=== PATIENT | female | born 1980 | race Caucasian/White ===

== ENCOUNTER 2020-09-10 01:04 | Emergency (ER) | payer OTHER ==
[2020-09-10] MEDS ORDERED: LODINE CAP 300300 MG PO (04:20)
[2020-09-10] MEDS ORDERED: CLINDAMYCIN HC150 MG PO (04:20)
== END 2020-09-10 04:00 | disposition home or self-care (01) ==
LOC: ER1 01:04
DX: L03.113 Cellulitis of right upper limb (principal); F17.210 Nicotine dependence, cigarettes, uncomplicated
CPT/HCPCS: 73110; 73130; 99283

== ENCOUNTER 2020-11-17 04:25 | Emergency (ER) | payer OTHER ==
[~2020-11-17 04:25] MED LIST: CLINDAMYCIN HC150 MG PO; LODINE CAP 300300 MG PO
[2020-11-17] MEDS ORDERED: HYDROCODON-ACE1 EAC4 PO (05:09)
== END 2020-11-17 05:35 | disposition home or self-care (01) ==
LOC: ER1 04:25
DX: S62.336A Displaced fracture of neck of fifth metacarpal bone, right hand, initial encounter for closed fracture (principal); F17.290 Nicotine dependence, other tobacco product, uncomplicated; W20.8XXA Other cause of strike by thrown, projected or falling object, initial encounter
CPT/HCPCS: 29125; 73130; 99283

== ENCOUNTER 2020-12-18 06:44 | Emergency (ER) | payer OTHER ==
[~2020-12-18 06:44] MED LIST changes: +HYDROCODON-ACE1 EAC4 PO
[2020-12-18] MEDS ORDERED: VALACYCLOVIR1000 MG PO (07:10)
== END 2020-12-18 07:45 | disposition home or self-care (01) ==
LOC: ER1 06:44
DX: B02.9 Zoster without complications (principal); F17.210 Nicotine dependence, cigarettes, uncomplicated
CPT/HCPCS: 99282

== ENCOUNTER 2021-02-25 00:57 | Emergency (ER) | payer OTHER ==
[~2021-02-25 00:57] MED LIST changes: +VALACYCLOVIR1000 MG PO
[2021-02-25] MEDS ORDERED: HYDROCODON-ACE1 EAC4 PO (21:23)
[2021-02-25] MEDS ORDERED: NAPROSYN500 MG PO (21:27)
[2021-02-25] MEDS ORDERED: ONDANSETRON ODT4 MG SL (21:27)
== END 2021-02-25 02:48 | disposition left against medical advice (07) ==
LOC: ER1 00:57
DX: M25.572 Pain in left ankle and joints of left foot (principal)
CPT/HCPCS: 73610; 99281

== ENCOUNTER 2021-02-25 20:08 | Emergency (ER) | payer OTHER ==
[2021-02-25] MEDS ORDERED: HYDROCODON-ACE1 EAC4 PO (21:23)
[2021-02-25] MEDS ORDERED: ONDANSETRON ODT4 MG SL (21:27)
[2021-02-25] MEDS ORDERED: NAPROSYN500 MG PO (21:27)
== END 2021-02-25 21:56 | disposition home or self-care (01) ==
LOC: ER1 20:08
DX: S82.62XA Displaced fracture of lateral malleolus of left fibula, initial encounter for closed fracture (principal); F17.210 Nicotine dependence, cigarettes, uncomplicated; X50.9XXA Other and unspecified overexertion or strenuous movements or postures, initial encounter; Y92.009 Unspecified place in unspecified non-institutional (private) residence as the place of occurrence of the external cause
CPT/HCPCS: 73590; 99283

== ENCOUNTER → 2021-03-02 | Emergency (ER) | payer OTHER ==
[~2021-03-02] MED LIST changes: +NAPROSYN500 MG PO; +ONDANSETRON ODT4 MG SL
== END | disposition home or self-care (01) ==
LOC: ER1 16:35
DX: S82.62XA Displaced fracture of lateral malleolus of left fibula, initial encounter for closed fracture (principal); F17.200 Nicotine dependence, unspecified, uncomplicated; X58.XXXA Exposure to other specified factors, initial encounter
CPT/HCPCS: 73610; 99283

== ENCOUNTER → 2021-03-07 | Outpatient (CLI) | payer OTHER | LOC: KOH-I 11:00 | DX: S82.62XD Displaced fracture of lateral malleolus of left fibula, subsequent encounter for closed fracture with routine healing (principal); X58.XXXD Exposure to other specified factors, subsequent encounter | CPT/HCPCS: 73610 ==

== ENCOUNTER → 2021-03-10 | Day surgery (SDC) | payer OTHER ==
[2021-03-10 10:38] LABS: HEMOGLOBIN 12.9 gm/dl (12.3-15.3); RED BLOOD COUNT 4.15 M/UL (4.00-5.10); WHITE BLOOD COUNT 7.6 K/UL (4.5-11.0)
[2021-03-10 11:00] LABS: BUN/CREATININE RATIO 13 (0-10)
== END | disposition home or self-care (01) ==
LOC: OR 09:30
PROVIDERS: Podiatrist Foot & Ankle Surgery
DX: S82.492A Other fracture of shaft of left fibula, initial encounter for closed fracture (principal); F17.200 Nicotine dependence, unspecified, uncomplicated; X50.1XXA Overexertion from prolonged static or awkward postures, initial encounter; Y92.9 Unspecified place or not applicable; Z53.29 Procedure and treatment not carried out because of patient's decision for other reasons; Z20.822 Contact with and (suspected) exposure to COVID-19
CPT/HCPCS: 80048; 85027; J0690; J1100; J1885; J2001; J2250; J2405; J2704; J2795; J3010; J7120

== ENCOUNTER → 2021-03-17 | Day surgery (SDC) | payer OTHER | END | disposition home or self-care (01) | LOC: OR 06:35 | DX: S82.62XA Displaced fracture of lateral malleolus of left fibula, initial encounter for closed fracture (principal); F17.290 Nicotine dependence, other tobacco product, uncomplicated; Z20.822 Contact with and (suspected) exposure to COVID-19; X50.1XXA Overexertion from prolonged static or awkward postures, initial encounter; Y92.9 Unspecified place or not applicable | CPT/HCPCS: 73610; 76000; C1713; J0690; J1100; J1885; J2001; J2250; J2370; J2405; J2704; J2795; J3010; J3370; J7120 ==

== ENCOUNTER → 2021-03-28 | Outpatient (CLI) | payer OTHER | LOC: KOH-I 08:51 | DX: S82.62XD Displaced fracture of lateral malleolus of left fibula, subsequent encounter for closed fracture with routine healing (principal) | CPT/HCPCS: 73610 ==

== ENCOUNTER → 2021-04-25 | Outpatient (CLI) | payer OTHER | LOC: KOH-I 09:10 | DX: S82.832A Other fracture of upper and lower end of left fibula, initial encounter for closed fracture (principal) | CPT/HCPCS: 73610 ==

== ENCOUNTER → 2021-05-16 | Outpatient (CLI) | payer OTHER | LOC: KOH-I 08:58 | DX: S82.832D Other fracture of upper and lower end of left fibula, subsequent encounter for closed fracture with routine healing (principal); X58.XXXD Exposure to other specified factors, subsequent encounter | CPT/HCPCS: 73610 ==

== ENCOUNTER → 2021-06-06 | Outpatient (CLI) | payer OTHER | LOC: KOH-I 09:02 | DX: S82.402A Unspecified fracture of shaft of left fibula, initial encounter for closed fracture (principal); X58.XXXA Exposure to other specified factors, initial encounter | CPT/HCPCS: 73610 ==

== ENCOUNTER → 2021-06-09 | Outpatient (CLI) | payer OTHER | LOC: KOH-I 15:43 | DX: I82.402 Acute embolism and thrombosis of unspecified deep veins of left lower extremity (principal) | CPT/HCPCS: 93971 ==